=== PATIENT | male | born 1990 | race Two or more races ===

== ENCOUNTER 2019-01-09 14:19 | Emergency (ER) | payer OTHER ==
[~2019-01-09] VITALS: Ht 188 cm; Wt 117.9 kg
--- NOTE | 2019-01-09 15:03 | NUR ---
TO ER BED 4, REFFERED [facility]. C/O COUGH AND CONGESTION AND HYPERTENSION WAS GIVEN 0.1 CLONIDINE PO AT URGENT CARE, HOOKED TO MONITOR, BP UPON ARRIVAL IN ED 216/117 P 104. PROVIDE W WARM BLANKET, AWAITING MD PETERSON
--- NOTE | 2019-01-09 16:11 | NUR ---
CASSANDRA CARBAJAL AT BEDSIDE
[2019-01-09] MEDS ORDERED: LORAZEPAM 0.5 MG TABLET ONE (16:26)
[2019-01-09] MEDS ORDERED: LISINOPRIL (10MG) 10 MG TABLET PO SCH (16:30)
[2019-01-09] MEDS ORDERED: LORAZEPAM 0.5 MG TABLET PO ONE (16:30)
[2019-01-09] MEDS ORDERED: LISINOPRIL (10MG) 10 MG TABLET PO ONE (16:30)
--- NOTE | 2019-01-09 17:54 | NUR ---
Patient discharged to home in stable condition. Written and verbal after care instructions given. Patient verbalizes understanding of instruction.
[2019-01-09 17:55] VITALS: BP 199/116
== END 2019-01-09 17:56 | disposition home or self-care (01) ==
LOC: ER 14:22
DX: J20.9 Acute bronchitis, unspecified (principal); R03.0 Elevated blood-pressure reading, without diagnosis of hypertension; F10.10 Alcohol abuse, uncomplicated; F17.200 Nicotine dependence, unspecified, uncomplicated; Y90.9 Presence of alcohol in blood, level not specified